=== PATIENT | female | born 1975 | race African-American/Black ===

== ENCOUNTER 2019-01-12 12:56 | Emergency (ER) | payer MEDICAID ==
[~2019-01-12] VITALS: Ht 172.7 cm; Wt 59.0 kg
[~2019-01-12 12:56] MED LIST: no home meds
[2019-01-12] MEDS ORDERED: SODIUM CHLORIDE 0.9% 1,000 ML IV ONE (13:32)
[2019-01-12] MEDS ORDERED: MORPHINE SULFATE 4 MG/ML CPJ (NOT FOR IM USE) IV STA (13:32)
[2019-01-12] MEDS ORDERED: ONDANSETRON HCL 4MG/2ML INJ IV STA (13:32)
[2019-01-12] MEDS ORDERED: FAMOTIDINE 20MG/2ML VIAL IV STA (13:32)
[2019-01-12 14:01] LABS: HEMATOCRIT. 26.8 % (36.0-48.0); HEMOGLOBIN. 7.7 g/dL (12.0-16.0); MEAN CORPUSCULAR VOLUME 59.3 fL (81.0-99.0); MEAN PLATELET VOLUME 8.6 fl (7.4-10.4); PLATELET 447 x1000/uL (130-400); RED BLOOD CELL COUNT 4.53 mill/uL (4.2-5.4); RED CELL DISTRIBUTION WIDTH 23.4 % (11.6-14.6)
[2019-01-12 14:05] LABS: INR 0.9; PROTHROMBIN TIME 9.7 sec (9.6-11.0)
[2019-01-12 14:07] LABS: CHLORIDE 103 mEq/L (98-107)
[2019-01-12 14:09] LABS: HCG SCREEN NEGATIVE
[2019-01-12 14:15] LABS: CLARITY URINE CLOUDY (CLEAR); COLOR URINE ORANGE (YELLOW); KETONES URINE NEGATIVE (NEGATIVE); LEUKOCYTE ESTERASE URINE TRACE (NEGATIVE); NITRITE URINE NEGATIVE (NEGATIVE); OCCULT BLOOD URINE 3+ (NEGATIVE); PH URINE 6.5 (4.5-8.0); PROTEIN URINE 1+ (NEGATIVE); SPECIFIC GRAVITY URINE 1.021 (1.005-1.030)
[2019-01-12 14:21] LABS: PLATELET ESTIMATE INCREASED
[2019-01-12 15:00] VITALS: BP 136/87
== END 2019-01-12 17:01 | disposition home or self-care (01) ==
LOC: ER 13:01
DX: N39.0 Urinary tract infection, site not specified (principal); D64.9 Anemia, unspecified; I11.0 Hypertensive heart disease with heart failure; I50.9 Heart failure, unspecified; J44.9 Chronic obstructive pulmonary disease, unspecified; F17.200 Nicotine dependence, unspecified, uncomplicated
CPT/HCPCS: 36415; 71045; 80053; 81003; 81025; 83690; 83880; 84484; 84703; 85025; 85610; 93005; 96374; 96375; 99284; 99406; J2270; J2405; J3490; J7030

== ENCOUNTER 2019-03-10 03:18 | Emergency (ER) | payer MEDICAID ==
[~2019-03-10] VITALS: Ht 167.6 cm; Wt 64.0 kg
[2019-03-10 07:05] VITALS: BP 140/81
== END 2019-03-10 07:06 | disposition home or self-care (01) ==
LOC: ER 03:18
DX: L02.212 Cutaneous abscess of back [any part, except buttock and flank] (principal); L03.312 Cellulitis of back [any part except buttock and flank]; J44.9 Chronic obstructive pulmonary disease, unspecified; I11.0 Hypertensive heart disease with heart failure; I50.9 Heart failure, unspecified
CPT/HCPCS: 99283

== ENCOUNTER 2020-02-23 09:40 | Emergency (ER) | payer MEDICAID ==
[~2020-02-23] VITALS: Ht 167.6 cm; Wt 75.0 kg
[2020-02-23] MEDS ORDERED: IBUPROFEN 600MG TABLET PO ONE (10:15)
[2020-02-23 10:16] VITALS: BP 179/95
== END 2020-02-23 14:11 | disposition home or self-care (01) ==
LOC: ER 09:40
DX: M54.5 Low back pain (principal); I11.9 Hypertensive heart disease without heart failure; J44.9 Chronic obstructive pulmonary disease, unspecified
CPT/HCPCS: 72100; 99283

== ENCOUNTER 2020-11-07 02:06 | Emergency (ER) | payer MEDICAID ==
[~2020-11-07] VITALS: Ht 165.1 cm; Wt 66.0 kg
[2020-11-07] MEDS ORDERED: SODIUM CHLORIDE 0.9% 1,000 ML IV ONE (03:00)
[2020-11-07 03:26] LABS: HEMOGLOBIN. 8.1 g/dL (12.0-16.0); MEAN PLATELET VOLUME 8.8 fl (7.4-10.4); RED CELL DISTRIBUTION WIDTH 23.9 % (11.6-14.6)
[2020-11-07 03:30] LABS: HEMATOCRIT. 28.2 % (36.0-48.0); MEAN CORPUSCULAR HEMOGLOBIN 17.8 pg (28.0-32.0); MEAN CORPUSCULAR VOLUME 62.1 fL (81.0-99.0); PLATELET 425 x1000/uL (130-400); RED BLOOD CELL COUNT 4.54 mill/uL (4.2-5.4)
[2020-11-07 03:31] LABS: CHLORIDE 105 mEq/L (98-107)
[2020-11-07 03:33] LABS: PARTIAL THROMBOPLASTIN TIME 27.6 sec (23.4-31.0); PROTHROMBIN TIME 10.7 sec (9.6-11.0)
[2020-11-07 03:35] LABS: ETHANOL BLOOD < 10 mg/dL
[2020-11-07 03:53] LABS: HCG SCREEN NEGATIVE
[2020-11-07 03:54] LABS: CLARITY URINE CLEAR (CLEAR); COLOR URINE YELLOW (YELLOW); KETONES URINE NEGATIVE (NEGATIVE); LEUKOCYTE ESTERASE URINE NEGATIVE (NEGATIVE); NITRITE URINE NEGATIVE (NEGATIVE); OCCULT BLOOD URINE NEGATIVE (NEGATIVE); PROTEIN URINE TRACE (NEGATIVE); SPECIFIC GRAVITY URINE 1.025 (1.005-1.030)
[2020-11-07 04:06] LABS: *AMPHETAMINES SCREEN URINE NEGATIVE (NEGATIVE); *BARBITURATES SCREEN URINE NEGATIVE (NEGATIVE); CANNABINOID URINE SCREEN NEGATIVE (NEGATIVE); OPIATES URINE SCREEN NEGATIVE (NEGATIVE); PHENCYCLIDINE URINE SCREEN NEGATIVE (NEGATIVE)
[2020-11-07 04:07] LABS: *BENZODIAZEPINES SCREEN URINE NEGATIVE (NEGATIVE); METHADONE URINE SCREEN NEGATIVE (NEGATIVE)
[2020-11-07 04:16] LABS: *COCAINE SCREEN URINE PRESUMTIVE POSITIVE (NEGATIVE)
[2020-11-07 04:19] LABS: PLATELET ESTIMATE INCREASED
[2020-11-07 05:49] VITALS: BP 142/69
== END 2020-11-07 06:46 | disposition home or self-care (01) ==
LOC: ER 02:06
DX: D64.9 Anemia, unspecified (principal); D25.9 Leiomyoma of uterus, unspecified; F14.10 Cocaine abuse, uncomplicated
CPT/HCPCS: 36415; 76856; 80053; 80305; 80320; 81003; 81025; 84703; 85025; 86850; 86900; 93005; 96360; 99285; G0480

== ENCOUNTER 2024-09-29 07:29 | Emergency (ER) | payer MEDICAID, OTHER ==
[~2024-09-29] VITALS: Ht 157.5 cm; Wt 70.0 kg
[~2024-09-29 07:29] MED LIST changes: +ALBU6.7H3 INH; +AZIT250T12 MT; +CEPH500C2 MT; +P50 PO; +T3 PO
[2024-09-29 07:30] VITALS: O2SAT 98
[2024-09-29 09:21] LABS: HEMATOCRIT. 22.9 % (36.0-48.0); MEAN CORPUSCULAR HEMOGLOBIN 15.6 pg (28.0-32.0); MEAN CORPUSCULAR HGB CONC 27.7 g/dL (31.0-37.0); MEAN CORPUSCULAR VOLUME 56.2 fL (81.0-99.0); MEAN PLATELET VOLUME 8.5 fl (7.4-10.4); PLATELET 232 x1000/uL (130-400); RED BLOOD CELL COUNT 4.07 mill/uL (4.2-5.4); RED CELL DISTRIBUTION WIDTH 23.8 % (11.6-14.6); WHITE BLOOD COUNT 4.4 x1000/uL (4.5-11.0)
[2024-09-29 09:22] LABS: CHLORIDE 103 mEq/L (98-107); POTASSIUM 3.7 mEq/L (3.5-5.1); SODIUM 142 mEq/L (136-145)
[2024-09-29 09:23] LABS: CALCIUM 9.8 mg/dL (8.7-10.4); CARBON DIOXIDE 30 mEq/L (21-32)
[2024-09-29 09:27] LABS: TROPONIN I HIGH SENSITIVITY 11 ng/L (3.0-34)
[2024-09-29 09:28] LABS: GLUCOSE 126 mg/dL (70-105); UREA NITROGEN BLOOD 12 mg/dL (9-23)
[2024-09-29 09:33] LABS: HEMOGLOBIN. 6.3 g/dL (12.0-16.0)
[2024-09-29 09:34] LABS: DIFFERENTIAL COMMENT 1; PARTIAL THROMBOPLASTIN TIME 26.2 sec (23.4-31.0); PROTHROMBIN TIME 10.7 sec (9.6-11.0)
[2024-09-29 10:40] LABS: ANISOCYTOSIS 2+; HYPOCHROMASIA 2+; MICROCYTOSIS 3+; PLATELET ESTIMATE NORMAL
[2024-09-29 11:44] LABS: HCG SCREEN NEGATIVE
[2024-09-29 13:40] VITALS: BP 163/73; PULSE 75; RESP 15; TEMP 36.61404
[2024-09-29 13:55] VITALS: BP 163/89; PULSE 100; RESP 20; TEMP 36.3918
[2024-09-29] MEDS ORDERED: SODIUM CHLORIDE 0.9% 1,000 ML IV NR (13:58)
[2024-09-29 14:55] VITALS: BP 156/86; PULSE 85; RESP 21; TEMP 36.3918; TEMP 36.39180
[2024-09-29] MEDS ORDERED: CLONIDINE 0.1MG TABLET PO PRN (16:15)
[2024-09-29] MEDS ORDERED: ONDANSETRON HCL 4MG/2ML INJ IV PRN (16:15)
[2024-09-29] MEDS ORDERED: ZOLPIDEM TARTRATE 5MG TABLET PO PRN (16:15)
[2024-09-29] MEDS ORDERED: MORPHINE SULFATE 2 MG/ML INJ (NOT FOR IM USE) IV PRN (16:15)
[2024-09-29] MEDS ORDERED: NALOXONE HCL 0.4MG/ML VIAL IV PRN (16:15)
[2024-09-29] MEDS ORDERED: ACETAMINOPHEN 325MG TABLET PO PRN (16:15)
[2024-09-29] MEDS ORDERED: HYDROCODONE/ACETAMINOPHEN 5/325MG TABLET PO PRN (16:15)
[2024-09-30] MEDS ORDERED: PANTOPRAZOLE SODIUM 40 MG/VIAL IV SCH (09:00)
== END 2024-09-29 17:32 | disposition left against medical advice (07) ==
LOC: ER 07:31 → EDBEDREQ 12:13 → EDBEDREQTM 12:13 → ER 17:32
DX: R07.9 Chest pain, unspecified (principal); D64.9 Anemia, unspecified; E84.9 Cystic fibrosis, unspecified; J44.9 Chronic obstructive pulmonary disease, unspecified; I10 Essential (primary) hypertension; Z98.890 Other specified postprocedural states; Z79.52 Long term (current) use of systemic steroids; F17.200 Nicotine dependence, unspecified, uncomplicated; Z88.6 Allergy status to analgesic agent
CPT/HCPCS: 80048; 84703; 83880; 85025; 85610; 85730; 86850; 86900; 86901; 86920; 84484; 36415; 71045; 93005; 99291; Z7610 ×2; 36430; A4606; P9016